=== PATIENT | male | born 1995 | race Asian ===

== ENCOUNTER 2017-01-09 18:05 | Emergency (ER) | payer OTHER ==
[~2017-01-09] VITALS: Ht 185.4 cm; Wt 78.9 kg
[2017-01-09 18:17] VITALS: BP 117/74; PULSE 79; TEMP 37; O2SAT 95; Ht 185.4 cm; Wt 78.9 kg
[2017-01-09] MEDS ORDERED: XYLOCAINE 1%/SOD BICARB 20 ML VIAL INFIL ONE (18:27)
--- NOTE | 2017-01-10 02:38 | EMERGENCY ROOM VISIT NOTE ---
ED Visit Note First contact with patient: 18:23 Chief Complaint: I cut my left thumb with a knife. History of Present Illness: Mr. Lazar is a 21-year-old [place] male who ambulates into the ED accompanied by female friend complaining of a left thumb laceration. Patient reports he was cutting chicken while preparing dinner and he cut his left thumbnail. Prior to arrival at the hospital he did control bleeding but did not wash the wound. Currently patient has no associated symptoms with his thumbnail laceration including pain in the thumb, thumb weakness/numbness/tingling. Review of Systems: As noted above in history of present illness. Past Medical History: Patient denies. Current Medications: Patient denies. Allergies to Medications: Patient denies. Social History: Patient is University student; he feels safe in his home environment; he denies tobacco use. Tetanus Immunization Status: Patient reports up-to-date. Physical Examination: Vital Signs: Date Time Temp Pulse Resp B/P (MAP) Pulse Ox O2 Delivery O2 Flow Rate FiO2 01/09/17 18:17 37.0 79 18 117/74 95 Room Air GENERAL: 21-year-old male in no acute distress, nontoxic-appearing, afebrile and hemodynamically stable. NEUROLOGICAL: Awake, alert and oriented to person, place and time. Answering questions appropriately and following commands. SKIN: Warm, dry and pink. Left Thumb: Patient has a V-shaped laceration of the central portion of the thumbnail. That laceration does extend superficially into the nailbed. There was minimal bleeding noted around his wound but no active bleeding. LEFT THUMB: No gross bony deformity. Soft tissue injury as noted above. The thumbnail, even though cut, is stable atop the nailbed. The superficial wound of the nailbed is noted as previously mentioned. Full range of motion in flexion and extension of the interphalangeal joint. Throughout the thumb the skin was warm and pink and capillary refill is brisk. He was able to distinguish light sensations through all dermatomes. ED Course: Patient is assessed as noted above. Since medication list was reviewed. Wound Repair: Complexity: Basic Verbal consent was obtained after the risks and benefits were explained. A digital block of the thumb was performed with 4 mL of buffered 1% lidocaine. The skin was prepped with betadine and a sterile field set. The wound was explored for foreign bodies and none found. Copious irrigation was performed using sterile saline. With direct pressure the bleeding subsided. Debridement was not performed. The wound edges were approximated using Steri-Strips. Hemostasis and excellent approximation was achieved. Sterile dressing applied. No complications and the patient tolerated the procedure well. Patient was educated about tonight's findings and instructed on his treatment plan; he verbalizes understanding and agreement with this plan. Clinical Impression: Laceration of the left thumbnail and superficial laceration of the nailbed. Decision-Making: This was a very unique laceration. I felt removal of the nail would not be necessary. I felt the nail could be stabilized with Steri-Strips and that the superficial underlying laceration of the nailbed would heal appropriately. Disposition: Patient discharged home in stable condition; prior to departure he was reassessed and subjectively reported he was pain-free. Plan: Comfort measures, wound care, and signs of infection were discussed with the patient. Patient was encouraged to follow-up with [facility] for recheck. Patient was encouraged to follow-up with [facility] or return to the ED for any signs of infection or any new/concerning symptoms.
== END 2017-01-09 19:32 | disposition home or self-care (01) ==
LOC: C.EDB 18:08 → C.EDD 19:32
DX: S61.319A Laceration without foreign body of unspecified finger with damage to nail, initial encounter (principal); W26.0XXA Contact with knife, initial encounter